=== PATIENT | female | born 1965 | race Caucasian/White ===

== ENCOUNTER 2019-12-19 15:33 | Emergency (ER) | payer MEDICAID ==
[~2019-12-19] VITALS: Ht 163 cm; Wt 95.0 kg
[2019-12-19 16:42] LABS: BILIRUBIN,URINE NEGATIVE (NEGATIVE); CLARITY,URINE CLEAR; COLOR,URINE YELLOW; GLUCOSE, URINE (UA) NEGATIVE (NEGATIVE); KETONES,URINE NEGATIVE (NEGATIVE); LEUKOCYTE ESTERASE ,URINE NEGATIVE (NEGATIVE); NITRITE,URINE NEGATIVE (NEGATIVE); PH,URINE 5.5 (5-9); PROTEIN,URINE NEGATIVE (NEGATIVE)
[2019-12-19 16:43] LABS: BASOPHILS % (AUTO) 1 % (0-10); EOSINOPHILS # (AUTO) 0.2 10^3/uL (0.0-0.3); EOSINOPHILS % (AUTO) 3 % (0-10); HEMATOCRIT 37 % (35-52); HEMOGLOBIN 12.2 G/DL (11.5-16.0); LYMPHOCYTES # (AUTO) 2.1 X 10^3 (1.0-4.0); LYMPHOCYTES % (AUTO) 31 % (12-44); MEAN CORPUSCULAR HEMOGLOBIN 30 PG (25-34); MEAN CORPUSCULAR HGB CONC 33 G/DL (32-36); MEAN CORPUSCULAR VOLUME 90 FL (80-99); MEAN PLATELET VOLUME 11.2 FL (7.4-10.4); MONOCYTES # (AUTO) 0.6 X 10^3 (0.0-1.0); MONOCYTES % (AUTO) 8 % (0-12); NEUTROPHILS % (AUTO) 58 % (42-75); PLATELET COUNT 277 10^3/uL (130-400); RED CELL DISTRIBUTION WIDTH 13.8 % (10.0-14.5); WHITE BLOOD COUNT 6.9 10^3/uL (4.3-11.0)
--- NOTE | 2019-12-19 16:47 | ED General ---
General Chief Complaint: Fever-Adult/Adol Stated Complaint: FEVER,SOB,BALANCE OFF,CHILLS,COUGH Source of Information: Patient Exam Limitations: No Limitations (SHERIF MORENO MD) History of Present Illness Date Seen by Provider: December 19, 2019 Time Seen by Provider: 16:00 Initial Comments Here with report of fevers, chills, body aches, short of breath and intermittent mild cough onset Monday, 3 days ago. States fever was persistent until now. Did have stomach upset but denies vomiting or diarrhea. States that she has been drinking a lot of water. Has been staying with family in [place] since Monday. Normally lives in [facility] with her older sister who is very fragile. Due to the current illness she did not go back there. She did personally report that she has no travel history other than from home to grocery store and lumbar store this weekend. Denies other sick contacts in the family. Timing/Duration: 3-4 Days Severity: Moderate Associated Systoms: Cough, Fever/Chills, Headaches, Shortness of Air, Weakness (SHERIF MORENO MD) Allergies and Home Medications Allergies Coded Allergies: erythromycin base (Verified Allergy, Severe, 12/19/19) Patient Home Medication List Home Medication List Reviewed: Yes (SHERIF MORENO MD) Review of Systems Review of Systems Constitutional: see HPI EENTM: see HPI, nose congestion; No throat pain Respiratory: see HPI Cardiovascular: No chest pain, No edema Gastrointestinal: abdominal pain (epigastric); No diarrhea, No nausea Genitourinary: decreased output Musculoskeletal: no symptoms reported (SHERIF MORENO MD) All Other Systems Reviewed Negative Unless Noted: Yes (SHERIF MORENO MD) Past Kvwjklv-Frejob-Hwycga Hx Past Med/Social Hx: Reviewed Nursing Past Med/Soc Hx (SHERIF MORENO MD) Patient Social History Alcohol Use: Denies Use Smoking Status: Current Everyday Smoker Recent Foreign Travel: No Contact w/Someone Who Travel: No (SHERIF MORENO MD) Past Medical History Surgeries: Yes Gallbladder, Orthopedic, Tubal Ligation Respiratory: Yes Cardiac: Yes High Cholesterol, Hypertension Neurological: No Reproductive Disorders: No Gastrointestinal: Yes Gastroesophageal Reflux, Hepatitis Musculoskeletal: Yes Endocrine: Yes Psychosocial: Yes Anxiety (SHERIF MORENO MD) Family Medical History Reviewed Nursing Family Hx (SHERIF MORENO MD) No Pertinent Family Hx (SHERIF MORENO MD) Physical Exam-Suspected Sepsis Physical Exam Vital Signs Vital Signs - First Documented 12/19/19 16:06 Temp 36.8 Pulse 74 Resp 18 B/P (MAP) 160/98 (118) Pulse Ox 99 O2 Delivery Room Air (LONDON MAZA) Vital Signs Capillary Refill : (SHERIF MORENO MD) Height, Weight, BMI Height: '" Weight: lbs. oz. kg; BMI Method: General Appearance: No Apparent Distress, WD/WN HEENT: PERRL/EOMI Neck: Non Tender, Supple Respiratory: Lungs Clear, Normal Breath Sounds Cardiovascular: Regular Rate, Rhythm, No Murmur Gastrointestinal: Non Tender, Soft Back: Normal Inspection, No CVA Tenderness, No Vertebral Tenderness Extremity: Normal Range of Motion, Non Tender Neurologic/Psychiatric: Alert, Oriented x3 Skin: normal color, warm/dry (SHERIF MORENO MD) Focused Exam Lactate Level 12/19/19 16:20: Lactic Acid Level 0.88 (LONDON MAZA) Lactic Acid Level Laboratory Tests Test 12/19/19 16:20 Lactic Acid Level 0.88 MMOL/L (0.50-2.00) (LONDON MAZA) Progress/Results/Core Measures Suspected Sepsis SIRS Temperature: Pulse: Respiratory Rate: Laboratory Tests 12/19/19 16:20: White Blood Count 6.9 Blood Pressure / Mean: 12/19/19 16:20: Lactic Acid Level 0.88 Laboratory Tests 12/19/19 16:20: Creatinine 0.77, INR Comment 0.8, Platelet Count 277, Total Bilirubin 0.4 (SHERIF MORENO MD) Results/Orders Lab Results Laboratory Tests Test 12/19/19 16:20 Range/Units White Blood Count 6.9 4.3-11.0 10^3/uL Red Blood Count 4.08 L 4.35-5.85 10^6/uL Hemoglobin 12.2 11.5-16.0 G/DL Hematocrit 37 35-52 % Mean Corpuscular Volume 90 80-99 FL Mean Corpuscular Hemoglobin 30 25-34 PG Mean Corpuscular Hemoglobin Concent 33 32-36 G/DL Red Cell Distribution Width 13.8 10.0-14.5 % Platelet Count 277 130-400 10^3/uL Mean Platelet Volume 11.2 H 7.4-10.4 FL Neutrophils (%) (Auto) 58 42-75 % Lymphocytes (%) (Auto) 31 12-44 % Monocytes (%) (Auto) 8 0-12 % Eosinophils (%) (Auto) 3 0-10 % Basophils (%) (Auto) 1 0-10 % Neutrophils # (Auto) 4.0 1.8-7.8 X 10^3 Lymphocytes # (Auto) 2.1 1.0-4.0 X 10^3 Monocytes # (Auto) 0.6 0.0-1.0 X 10^3 Eosinophils # (Auto) 0.2 0.0-0.3 10^3/uL Basophils # (Auto) 0.0 0.0-0.1 10^3/uL Erythrocyte Sedimentation Rate 23 0-30 MM/HR Prothrombin Time 11.5 L 12.2-14.7 SEC INR Comment 0.8 0.8-1.4 Activated Partial Thromboplast Time 28 24-35 SEC D-Dimer 1.00 H 0.00-0.49 UG/ML Urine Color YELLOW Urine Clarity CLEAR Urine pH 5.5 5-9 Urine Specific Grayling 1.025 H 1.016-1.022 Urine Protein NEGATIVE NEGATIVE Urine Glucose (UA) NEGATIVE NEGATIVE Urine Ketones NEGATIVE NEGATIVE Urine Nitrite NEGATIVE NEGATIVE Urine Bilirubin NEGATIVE NEGATIVE Urine Urobilinogen 1.0 < = 1.0 MG/DL Urine Leukocyte Esterase NEGATIVE NEGATIVE Urine RBC (Auto) NEGATIVE NEGATIVE Urine RBC NONE /HPF Urine WBC 0-2 /HPF Urine Squamous Epithelial Cells 0-2 /HPF Urine Crystals NONE /LPF Urine Bacteria TRACE /HPF Urine Casts NONE /LPF Urine Mucus SMALL H /LPF Urine Culture Indicated NO Sodium Level 140 135-145 MMOL/L Potassium Level 4.1 3.6-5.0 MMOL/L Chloride Level 105 98-107 MMOL/L Carbon Dioxide Level 25 21-32 MMOL/L Anion Gap 10 5-14 MMOL/L Blood Urea Nitrogen 13 7-18 MG/DL Creatinine 0.77 0.60-1.30 MG/DL Estimat Glomerular Filtration Rate > 60 BUN/Creatinine Ratio 17 Glucose Level 93 70-105 MG/DL Lactic Acid Level 0.88 0.50-2.00 MMOL/L Calcium Level 9.0 8.5-10.1 MG/DL Corrected Calcium 9.0 8.5-10.1 MG/DL Total Bilirubin 0.4 0.1-1.0 MG/DL Aspartate Amino Transf (AST/SGOT) 68 H 5-34 U/L Alanine Aminotransferase (ALT/SGPT) 78 H 0-55 U/L Alkaline Phosphatase 68 40-136 U/L Lactate Dehydrogenase 833 H 125-220 U/L C-Reactive Protein High Sensitivity 1.06 H 0.00-0.50 MG/DL Total Protein 7.2 6.4-8.2 GM/DL Albumin 4.0 3.2-4.5 GM/DL Procalcitonin 0.05 <0.10 NG/ML Urine Opiates Screen NEGATIVE NEGATIVE Urine Oxycodone Screen NEGATIVE NEGATIVE Urine Methadone Screen NEGATIVE NEGATIVE Urine Propoxyphene Screen NEGATIVE NEGATIVE Urine Barbiturates Screen NEGATIVE NEGATIVE Ur Tricyclic Antidepressants Screen NEGATIVE NEGATIVE Urine Phencyclidine Screen NEGATIVE NEGATIVE Urine Amphetamines Screen POSITIVE H NEGATIVE Urine Methamphetamines Screen POSITIVE H NEGATIVE Urine Benzodiazepines Screen POSITIVE H NEGATIVE Urine Cocaine Screen NEGATIVE NEGATIVE Urine Cannabinoids Screen NEGATIVE NEGATIVE (LONDON MAZA) Micro Results Microbiology 12/19/19 Influenza Types A,B Antigen (IVETH) - Final, Complete (LONDON MAZA) My Orders Orders - LONDON MAZA Drug Screen Stat (Urine) (12/19/19 17:47) (LONDON MAZA) Medications Given in ED Current Medications Medications Dose Ordered Sig/Jorge Route Start Time Stop Time Status Last Admin Dose Admin Iohexol 100 ml ONCE ONCE IV 12/19/19 17:45 12/19/19 17:48 DC 12/19/19 18:26 79 ML Lactated Ringer's 1,000 ml @ 0 mls/hr Q0M ONCE IV 12/19/19 16:50 12/19/19 16:52 DC 12/19/19 17:18 1,000 MLS/HR Sodium Chloride 10 ml NEEDED PRN IV 12/19/19 17:45 12/19/19 18:27 10 ML Sodium Chloride 100 ml ONCE ONCE IV 12/19/19 17:45 12/19/19 17:48 DC 12/19/19 18:26 80 ML (LONDON MAZA) Vital Signs/I&O 12/19/19 16:06 Temp 36.8 Pulse 74 Resp 18 B/P (MAP) 160/98 (118) Pulse Ox 99 O2 Delivery Room Air (LONDON MAZA) Vital Signs/I&O Capillary Refill : (SHERIF MORENO MD) Progress Note : Progress Note Seen and evaluated. IV, labs, blood cultures and lactic acid ordered. Influenza screen and COVID-19 screen ordered. LR 1 L bolus. Chest x-ray ordered. Monitor patient. 174: No acute findings and chest x-ray are UA. Influenza negative. CBC does not show any significant findings. LDH is elevated. D-dimer is elevated. Given these findings, we will get CT angiogram of the chest given reported shortness of breath, dizziness and mild cough with report of fever. Monitor patient. (SHERIF MORENO MD) Progress Note : Progress Note 1800 Assumed care of patient from Dr. Moreno. No requests at this time. Awaiting CT Chest. 1899 CT chest results discussed with Dr. Moreno. Suspicion for COVID 19, charge instructions and return precautions reviewed with the patient. She understands the importance of quarantine and isolation until results are confirmed. (LONDON MAZA) Diagnostic Imaging Diagonstic Imaging: Xray Plain Films/CT/US/NM/MRI: chest Comments [facility], [place] NAME: ISIDORO FAJARDO [facility] REC#: [id number] PT STATUS: REG ER : 1965 PHYSICIAN: SHERIF MORENO MD ADMIT DATE: 12/19/19/ER Signed Date of Exam:12/19/19 CHEST 1 VIEW, AP/PA ONLY EXAMINATION: Chest radiograph, portable AP view. DATE: 12/19/2019 5:22 PM INDICATION: 54-year-old female, cough, fever, chills. COMPARISON: None. FINDINGS: Heart size and mediastinal contours are unremarkable. There is no identified pneumothorax. There is no large pleural effusion. There is no identified focal airspace consolidation. IMPRESSION: No identified acute cardiopulmonary abnormality. Dictated by: Dictated on workstation # [id number] Dict: 12/19/19 1722 Trans: 12/19/19 1730 [id number] Interpreted by: GERARDO SAPP MD Electronically signed by: GERARDO SAPP MD 12/19/19 1736 (SHERIF MORENO MD) Comments NAME: ISIDORO FAJARDO REC#: [id number] PT STATUS: REG ER : 1965 PHYSICIAN: SHERIF MORENO MD ADMIT DATE: 12/19/19/ER Draft Date of Exam:12/19/19 CT DAY[facility]I CHEST/NOANG ABD-PELV W HISTORY: Fever, chills, cough for four days. TECHNIQUE: Axial CT of the chest was performed following intravenous administration of contrast timed for evaluation of the pulmonary arteries, with sagittal, coronal, and MIP reformats. Axial CT of the abdomen and pelvis was performed following intravenous administration of contrast as well. COMPARISON: Chest x-ray from the same day. FINDINGS: CT CHEST: The pulmonary arteries are diagnostic to the segmental level. No pulmonary embolus is seen. The heart is normal in size. There is no pericardial effusion. The aorta appears normal in caliber. There are multiple mildly prominent mediastinal and hilar lymph nodes. There is a right hilar lymph node measuring 8 x 16 mm (image 52 series 2). There is a left hilar lymph node measuring 8 x 13 mm (image 65 series 2). There is no pleural effusion or pneumothorax. No central endobronchial lesions are seen. There is groundglass opacity in the dependent lungs bilaterally. A calcified granuloma is seen in the right lower lobe. There is a triangular nodule along the right minor fissure which likely represents a lymph node (image 59 series 2). There is a 6 mm nodule in the right lower lobe (image 114 series 2). There are mild peripheral subpleural groundglass opacities in the lungs with no focal airspace consolidation seen. No acute osseous abnormality is seen. CT ABDOMEN/PELVIS: The liver demonstrates no focal lesions. Cholecystectomy clips are noted. The spleen appears normal. The pancreas is normal. The adrenal glands appear normal. The kidneys are unremarkable. Bowel loops are nondistended without obstruction seen. The appendix is normal. There is diverticulosis in the sigmoid colon without diverticulitis seen. No free fluid or free air is seen. No acute osseous abnormality is seen. IMPRESSION: 1. Groundglass opacities in dependent lungs and in the subpleural lung elsewhere. These are nonspecific, and may be due to atelectasis, scarring, or focal infectious/inflammatory process. 2. No pulmonary embolus seen. 3. Nodule in the right lower lobe, consider follow-up CT in 6 to 12 months. 4. Diverticulosis of the colon with no diverticulitis seen. Dictated on workstation # [id number] Dict: 12/19/19 1835 Trans: 12/19/19 1849 [id number] Interpreted by: BOB WARD MD Electronically signed by: (LONDON MAZA) Departure Impression Primary Impression: Cough Additional Impressions: Upper respiratory infection Qualified Codes: J06.9 - Acute upper respiratory infection, unspecified Lung nodule seen on imaging study Suspected SARS Disposition: HOME, SELF-CARE Condition: Improved Departure-Patient Inst. Decision time for Depature: 19:00 (LONDON MAZA) Referrals: NO,LOCAL PHYSICIAN (PCP/Family) Primary Care Physician Patient Instructions: Coronavirus Disease 2019 (COVID-19) (DC) Add. Discharge Instructions: stay home on isolation, until your COVID 19 results are called to you. Notify any close contacts over the last 3-4 days, to stay home until your results are known Increase rest and fluids. You need a follow up CT of chest for suspicious nodule in 6-12 months. Call your primary care provider, if symptoms worsen. Alternate Tylenol 650mg and Ibuprofen 600 mg every 4 hours Return to the ER if difficulty breathing, fever greater than 101, not relieved by Tylenol/Ibuprofen or any other concerning symptoms. All discharge instructions reviewed with patient and/or family. Voiced understanding. SHERIF MORENO MD December 19, 2019 16:47 LONDON MAZA December 19, 2019 19:06
[2019-12-19] MEDS ORDERED: LACTATED RINGERS 1,000 ML IV ONE (16:50)
[2019-12-19 16:52] LABS: BACTERIA,URINE TRACE /HPF; WBC,URINE 0-2 /HPF
[2019-12-19 16:53] LABS: SQUAMOUS EPITHELIAL CELL,UR 0-2 /HPF
[2019-12-19 16:57] LABS: CHLORIDE 105 MMOL/L (98-107); POTASSIUM 4.1 MMOL/L (3.6-5.0); SODIUM 140 MMOL/L (135-145)
[2019-12-19 17:00] LABS: GLUCOSE 93 MG/DL (70-105); TOTAL PROTEIN 7.2 GM/DL (6.4-8.2)
[2019-12-19 17:01] LABS: CARBON DIOXIDE 25 MMOL/L (21-32)
[2019-12-19 17:02] LABS: BILIRUBIN,TOTAL 0.4 MG/DL (0.1-1.0)
[2019-12-19 17:03] LABS: ALKALINE PHOSPHATASE 68 U/L (40-136)
[2019-12-19 17:04] LABS: CREATININE SERUM 0.77 MG/DL (0.60-1.30); GFR ESTIMATED > 60
[2019-12-19 17:05] LABS: BUN/CREATININE RATIO 17
[2019-12-19 17:06] LABS: ALANINE AMINOTRANSFERASE 78 U/L (0-55)
[2019-12-19 17:14] LABS: ERYTHROCYTE SEDIMENTATION RATE 23 MM/HR (0-30)
--- NOTE | 2019-12-19 17:27 | Diagnostic Imaging Report ---
EXAMINATION: Chest radiograph, portable AP view. DATE: 12/19/2019 5:22 PM INDICATION: 54-year-old female, cough, fever, chills. COMPARISON: None. FINDINGS: Heart size and mediastinal contours are unremarkable. There is no identified pneumothorax. There is no large pleural effusion. There is no identified focal airspace consolidation. IMPRESSION: No identified acute cardiopulmonary abnormality. Dictated by: Dictated on workstation # [id number]
[2019-12-19 17:38] LABS: INR 0.8 (0.8-1.4); PROTHROMBIN TIME PATIENT 11.5 SEC (12.2-14.7)
[2019-12-19] MEDS ORDERED: IOHEXOL 350 MG/ML 100 ML (OMNIPAQUE 350) VIAL IV ONE (17:45)
[2019-12-19] MEDS ORDERED: HOLD METFORMIN - RECEIVED CONTRAST 20 ML VIAL IV SCH (17:45)
[2019-12-19] MEDS ORDERED: NS 100 ML (IVPB) BAG IV ONE (17:45)
[2019-12-19] MEDS ORDERED: CATHETER FLUSH 10 ML SYR IV PRN (17:45)
[2019-12-19 18:04] LABS: AMPHETAMINE SCREEN, URINE POSITIVE (NEGATIVE); BARBITURATE SCREEN URINE NEGATIVE (NEGATIVE); BENZODIAZEPINES SCREEN URINE POSITIVE (NEGATIVE); CANNABINOID SCREEN, URINE NEGATIVE (NEGATIVE); COCAINE SCREEN URINE NEGATIVE (NEGATIVE); METHADONE STAT NEGATIVE (NEGATIVE); METHAMPHETAMINE SCREEN URINE S POSITIVE (NEGATIVE); OPIATE SCREEN URINE NEGATIVE (NEGATIVE); OXYCODONE STAT NEGATIVE (NEGATIVE); PROPOXYPHENE STAT NEGATIVE (NEGATIVE); TRICYCLIC ANTIDEPRESSANTS SCRE NEGATIVE (NEGATIVE)
--- OUTSIDE RECORDS SUMMARY | 2019-12-19 18:19 | XMS REPORT | Continuity of Care Document ---
Demographics Preferred Language Unknown Marital Status Unknown Mosque Affiliation Unknown Race Unknown Ethnic Group Unknown Author Organization Unknown Address Unknown Phone Unavailable Allergies There is no data. Medications There is no data. Problems There is no data. Procedures There is no data. Results Test Result Range Complete blood count (CBC) with automate d white blood cell (WBC) differential - 12/19/19 16:20 Blood leukocytes automated count (number/volume) 6.9 10*3/uL 4.3-11.0 Blood erythrocytes automated count (number/volume) 4.08 10*6/uL 4.35-5.85 Venous blood hemoglobin measurement (mass/volume) 12.2 g/dL 11.5-16.0 Blood hematocrit (volume fraction) 37 % 35-52 Automated erythrocyte mean corpuscular volume 90 [ foz_us] 80-99 Automated erythrocyte mean corpuscular h emoglobin (mass per erythrocyte) 30 pg 25-34 Automated erythrocyte mean corpuscular h emoglobin concentration measurement (mass/volume) 33 g/dL 32-36 Automated erythrocyte distribution width ratio 13. 8 % 10.0- 14.5 Automated blood platelet count (count/volume) 277 10*3/uL 130-400 Automated blood platelet mean volume measurement 11.2 [foz_us] 7.4-10.4 Automated blood neutrophils/100 leukocytes 58 % 42-75 Automated blood lymphocytes/100 leukocytes 31 % 12-44 Blood monocytes/100 leukocytes 8 % 0-12 Automated blood eosinophils/100 leukocytes 3 % 0-10 Automated blood basophils/100 leukocytes 1 % 0-10 Blood neutrophils automated count (number/volume) 4.0 10*3 1.8-7.8 Blood lymphocytes automated count (number/volume) 2.1 10*3 1.0-4.0 Blood monocytes automated count (number/volume) 0. 6 10*3 0.0-1.0 Automated eosinophil count 0.2 10*3/uL 0 .0-0.3 Automated blood basophil count (count/volume) 0.0 10*3/uL 0.0-0.1 Complete urinalysis with reflex to cultu re - 05/07/20 16:20 Urine color determination YELLOW NRG Urine clarity determination CLEAR NR G Urine pH measurement by test strip 5.5 5-9 Specific gravity of urine by test strip 1.025 1.016-1.022 Urine protein assay by test strip, semi-quantitative NEGATIVE NEGATIVE Urine glucose detection by automated test strip NE GATIVE NEGATIVE Erythrocytes detection in urine sediment by light micr oscopy NEGATIVE NEGATIVE Urine ketones detection by automated test strip NE GATIVE NEGATIVE Urine nitrite detection by test strip NEGATIVE NEGATIVE Urine total bilirubin detection by test strip NEGA TIVE NEGATIVE Urine urobilinogen measurement by automated test strip (mass/volume) 1.0 mg/dL < = 1.0 Urine leukocyte esterase detection by dipstick NEG ATIVE NEGATIVE Automated urine sediment erythrocyte cou nt by microscopy (number/high power field) NONE NRG Automated urine sediment leukocyte count by microscopy (number/high power field) [HPF] NRG Bacteria detection in urine sediment by light microsco py TRACE NRG Squamous epithelial cells detection in u rine sediment by light microscopy 0-2 NRG Crystals detection in urine sediment by light microsco py NONE NRG Casts detection in urine sediment by light microscopy NONE NRG Mucus detection in urine sediment by light microscopy SMALL NRG Complete urinalysis with reflex to culture NO NRG Comprehensive metabolic panel - 12/19/19 16:20 Serum or plasma sodium measurement (moles/volume) 140 mmol/L 135-145 Serum or plasma potassium measurement (moles/volume) 4.1 mmol/L 3.6-5.0 Serum or plasma chloride measurement (moles/volume) 105 mmol/L 98-107 Carbon dioxide 25 mmol/L 21-32 Serum or plasma anion gap determination (moles/volume) 10 mmol/L 5-14 Serum or plasma urea nitrogen measurement (mass/volume ) 13 mg/dL 7-18 Serum or plasma creatinine measurement (mass/volume) 0.77 mg/dL 0.60-1.30 Serum or plasma urea nitrogen/creatinine mass ratio 17 NRG Serum or plasma creatinine measurement w ith calculation of estimated glomerular filtration rate > NRG Serum or plasma glucose measurement (mass/volume) 93 mg/dL 70-105 Serum or plasma calcium measurement (mass/volume) 9.0 mg/dL 8.5-10.1 Serum or plasma total bilirubin measurement (mass/volu me) 0.4 mg/dL 0.1-1.0 Serum or plasma alkaline phosphatase day surement (enzymatic activity/volume) 68 U/L 40-136 Serum or plasma aspartate aminotransfera se measurement (enzymatic activity/volume) 68 U/L 5-34 Serum or plasma alanine aminotransferase measurement (enzymatic activity/volume) 78 U/L 0-55 Serum or plasma protein measurement (mass/volume) 7.2 g/dL 6.4-8.2 Serum or plasma albumin measurement (mass/volume) 4.0 g/dL 3.2-4.5 CALCIUM CORRECTED 9.0 mg/dL 8.5-10.1 Influenza virus A and B antigen detectio n - 12/19/19 16:20 FLU RESULT NEGATIVE FOR INFLUENZA A AND B ANTIGENS BY IA NRG Blood lactic acid measurement (moles/vol ume) - 12/19/19 16:20 Blood lactic acid measurement (moles/volume) 0.88 mmol/L 0.50-2.00 Serum ragweed IgE antibody assay - 12/18 16:20 Serum ragweed IgE antibody assay 833 U/L 125-220 PROCALCITONIN (PCT) - 12/19/19 16:20 PROCALCITONIN (PCT) 0.05 ng/mL <0.10 Erythrocyte sedimentation rate by andrew gren method - 12/19/19 16:20 Erythrocyte sedimentation rate by westergren method 23 mm 0- 30 Serum or plasma C reactive protein measu rement (mass/volume) - 12/19/19 16:20 Serum or plasma C reactive protein measurement (mass/v olume) 1.06 mg/dL 0.00-0.50 PT panel in platelet poor plasma by coag ulation assay - 12/19/19 16:20 Prothrombin time (PT) in platelet poor plasma by coagu lation assay 11.5 s 12.2-14.7 INR in platelet poor plasma or blood by coagulation as say 0.8 0.8-1.4 Activated partial thromboplastin time (a PTT) in platelet poor plasma bycoagulation assay - 12/19/19 16:20 Activated partial thromboplastin time (a PTT) in platelet poor plasma bycoagulation assay 28 s 24-35 Fibrin D-dimer FEU measurement in platel et poor plasma (mass/volume) - 12/19/19 16:20 Fibrin D-dimer FEU measurement in platelet poor plasma (mass/volume) 1.00 ug/mL 0.00-0.49 Urine drug screening test - 12/19/19 16: 20 Urine phencyclidine detection by screening method NEGATIVE NEGATIVE Urine benzodiazepines detection by screening method POSITIVE NEGATIVE Urine cocaine detection NEGATIVE NEGATI VE Urine amphetamines detection by screening method P OSITIVE NEGATIVE Urine methamphetamine detection by screening method POSITIVE NEGATIVE Urine cannabinoids detection by screening method N EGATIVE NEGATIVE Urine opiates detection by screening method NEGATI VE NEGATIVE Urine barbiturates detection NEGATIVE N EGATIVE Screening urine tricyclic antidepressants detection NEGATIVE NEGATIVE Urine methadone detection by screening method NEGA TIVE NEGATIVE Urine oxycodone detection NEGATIVE NEGA TIVE Urine propoxyphene detection NEGATIVE N EGATIVE Encounters ACCT No. Visit Date/Time Discharge Status Pt. Type Provider Facility Loc./Unit Complaint [id number] 12/19/2019 16:48:00 Document Registration
--- NOTE | 2019-12-19 18:50 | Diagnostic Imaging Report ---
HISTORY: Fever, chills, cough for four days. TECHNIQUE: Axial CT of the chest was performed following intravenous administration of contrast timed for evaluation of the pulmonary arteries, with sagittal, coronal, and MIP reformats. Axial CT of the abdomen and pelvis was performed following intravenous administration of contrast as well. COMPARISON: Chest x-ray from the same day. FINDINGS: CT CHEST: The pulmonary arteries are diagnostic to the segmental level. No pulmonary embolus is seen. The heart is normal in size. There is no pericardial effusion. The aorta appears normal in caliber. There are multiple mildly prominent mediastinal and hilar lymph nodes. There is a right hilar lymph node measuring 8 x 16 mm (image 52 series 2). There is a left hilar lymph node measuring 8 x 13 mm (image 65 series 2). There is no pleural effusion or pneumothorax. No central endobronchial lesions are seen. There is groundglass opacity in the dependent lungs bilaterally. A calcified granuloma is seen in the right lower lobe. There is a triangular nodule along the right minor fissure which likely represents a lymph node (image 59 series 2). There is a 6 mm nodule in the right lower lobe (image 114 series 2). There are mild peripheral subpleural groundglass opacities in the lungs with no focal airspace consolidation seen. No acute osseous abnormality is seen. CT ABDOMEN/PELVIS: The liver demonstrates no focal lesions. Cholecystectomy clips are noted. The spleen appears normal. The pancreas is normal. The adrenal glands appear normal. The kidneys are unremarkable. Bowel loops are nondistended without obstruction seen. The appendix is normal. There is diverticulosis in the sigmoid colon without diverticulitis seen. No free fluid or free air is seen. No acute osseous abnormality is seen. IMPRESSION: 1. Groundglass opacities in dependent lungs and in the subpleural lung elsewhere. These are nonspecific, and may be due to atelectasis, scarring, or focal infectious/inflammatory process. 2. No pulmonary embolus seen. 3. Nodule in the right lower lobe, consider follow-up CT in 6 to 12 months. 4. Diverticulosis of the colon with no diverticulitis seen. Dictated by: Dictated on workstation # [id number]
[2019-12-19 19:25] VITALS: BP 124/99
== END 2019-12-19 19:25 | disposition home or self-care (01) ==
LOC: ER 15:39
DX: J06.9 Acute upper respiratory infection, unspecified (principal); R91.1 Solitary pulmonary nodule; F17.200 Nicotine dependence, unspecified, uncomplicated; Z88.1 Allergy status to other antibiotic agents
CPT/HCPCS: 36415; 71045; 71275; 74177; 80053; 80306; 81000; 83605; 83615; 84145; 85025; 85379; 85610; 85652; 85730; 86141; 87040; 87088; 87635; 87804; 96360

== ENCOUNTER 2020-02-24 17:38 | Emergency (ER) | payer MEDICAID ==
[~2020-02-24] VITALS: Ht 162 cm; Wt 91.0 kg
[2020-02-24 17:40] VITALS: BP 175/105
[2020-02-24] MEDS ORDERED: FLUC100T6 PO (17:50)
[2020-02-24] MEDS ORDERED: NAPR-1071 PO (17:51)
--- NOTE | 2020-02-24 17:51 | ED Upper Extremity ---
General Stated Complaint: R WRIST / ARM PAIN Source: patient Exam Limitations: no limitations History of Present Illness Date Seen by Provider: Feb 24, 2020 Time Seen by Provider: 17:45 Initial Comments R with right wrist pain after she fell 3 weeks ago, states she saw her primary care provider who ordered an x-ray at the time but was told it was normal. The right wrist pain persists. Onset: just prior to arrival Severity: moderate Pain/Injury Location: right wrist Method of Injury: unknown Modifying Factors: Worse With Movement Allergies and Home Medications Allergies Coded Allergies: erythromycin base (Verified Allergy, Severe, 12/19/19) Home Medications Fluconazole 100 Mg Tablet, 100 MG PO WEEK Prescribed by: MALIK MCCOY on 02/24/201749 Naproxen 500 Mg Tablet, 500 MG PO BID Prescribed by: MALIK MCCOY on 02/24/201750 Patient Home Medication List Home Medication List Reviewed: Yes Review of Systems Constitutional: see HPI EENTM: see HPI Respiratory: no symptoms reported Cardiovascular: no symptoms reported Genitourinary: no symptoms reported Musculoskeletal: see HPI Skin: no symptoms reported Psychiatric/Neurological: No Symptoms Reported Past Iotdmgg-Kjlnyj-Fexjwq Hx Patient Social History Type Used: Cigarettes Recent Foreign Travel: No Contact w/Someone Who Travel: No Recent Hopitalizations: No Seasonal Allergies Seasonal Allergies: No Past Medical History Surgeries: Yes Gallbladder, Orthopedic, Tubal Ligation Respiratory: Yes Cardiac: Yes High Cholesterol, Hypertension Neurological: No Reproductive Disorders: No 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 oz. kg; 35.00 BMI Method: General Appearance: WD/WN, no apparent distress, other (tox at a high rate of speed, unable to sit still, almost constant writhing motion. Denies methamphetamine use but appears to be under the influence of stimulants.) HEENT: PERRL/EOMI, normal ENT inspection Respiratory: normal breath sounds, no respiratory distress, no accessory muscle use Shoulder: normal inspection, non-tender Elbow/Forearm: normal inspection, non-tender Wrist: Yes normal inspection, Yes soft tissue tenderness; No swelling Hand: normal inspection, non-tender Neurologic/Psychiatric: alert, normal mood/affect, oriented x 3 Skin: normal color, other (patches of well demarcated erythema with most erythema at the leading edge and central clearing consistent with a fungal infection about the torso.) Progress/Results/Core Measures Results/Orders My Orders Orders - MALIK MCCOY APRN Wrist, Right, 3 Views Or More (02/24/20 17:40) Vital Signs/I&O 02/24/20 17:40 Temp 36.7 Pulse 92 Resp 18 B/P (MAP) 175/105 (128) Pulse Ox 97 Departure Impression Primary Impression: Tinea corporis Additional Impression: Right wrist pain Disposition: 01 HOME, SELF-CARE Condition: Stable Departure-Patient Inst. Decision time for Depature: 17:48 Referrals: NO,LOCAL PHYSICIAN (PCP) Primary Care Physician Patient Instructions: Fungal Skin Rash, Wrist Sprain (DC) Add. Discharge Instructions: Take the oral antifungal once a week for 4 weeks. You can use wled-jci-jggqzab athlete's foot cream on these lesions as well. Follow-up with your regular doctor for further evaluation of the wrist pain and possible referral to an orthopedic surgeon. Scripts Naproxen (Naprosyn) 500 Mg Tablet 500 MG PO BID, #30 TAB 0 Refills Prov: MALIK MCCOY APRN 02/24/20 Fluconazole (Fluconazole) 100 Mg Tablet 100 MG PO WEEK, #4 TAB Prov: MALIK MCCOY APRN 02/24/20 MALIK MCCOY APRN Feb 24, 2020 17:51
--- NOTE | 2020-02-24 18:01 | Diagnostic Imaging Report ---
INDICATION: Right wrist injury 3 views of the right wrist show no fracture, dislocation or other acute abnormalities. IMPRESSION: Negative right wrist Dictated by: Dictated on workstation # [id number]
--- OUTSIDE RECORDS SUMMARY | 2020-02-24 20:13 | XMS REPORT | Continuity of Care Document ---
Author Organization Unknown Address Unknown Phone Unavailable Allergies Active Description Code Type Severity Reaction Onset Reported/Identified Relationship to Patient Clinical Status Yes erythromycin base [id number] Drug Allergy Severe N/A 12/19/2019 Medications There is no data. Problems Date Dx Coded Attending Type Code Diagnosis Diagnosed By 12/23/2019 SHERIF MORENO MD, Ot F17.200 NICOTINE DEPENDENCE, UNSPECIFIED, UNCOMP 12/23/2019 SHERIF MORENO MD, Ot J06.9 ACUTE UPPER RESPIRATORY INFECTION, UNSPE 12/23/2019 SHERIF MORENO MD Ot R05 COUGH 12/23/2019 SHERIF MORENO MD Ot R91.1 SOLITARY PULMONARY NODULE 12/23/2019 SHERIF MORENO MD, Ot Z88.1 ALLERGY STATUS TO OTHER ANTIBIOTIC AGENT 01/15/2020 SHERIF MORENO MD, Ot F17.200 NICOTINE DEPENDENCE, UNSPECIFIED, UNCOMP 01/15/2020 SHERIF MORENO MD, Ot J06.9 ACUTE UPPER RESPIRATORY INFECTION, UNSPE 01/15/2020 SHERIF MOREON MD Ot R05 COUGH 01/15/2020 SHERIF MORENO MD Ot R91.1 SOLITARY PULMONARY NODULE 01/15/2020 SHERIF MORENO MD Ot Z20.828 CONTACT W AND EXPOSURE TO OTH VIRAL COMM 01/15/2020 SHERIF MORENO MD Ot Z88.1 ALLERGY STATUS TO OTHER ANTIBIOTIC AGENT Procedures There is no data. Results Test [...] urinalysis with reflex to cultu re - 12/19/19 16:20 Urine color determination YELLOW NRG Urine [...] TIVE Urine propoxyphene detection NEGATIVE N EGATIVE Coronavirus SARS-CoV-2 SO 2018 - 0 16:20 Coronavirus Ab [Units/volume] in Serum Negative Negative Bacterial urine culture - 12/19/19 16:20 Bacterial urine culture 3 OR MORE NRG COLONY COUNT >100,000/ML NRG SUSCEPTIBILITY SUGGESTING PROBABLE COLLECTION NRG MRSA SCREEN CONTAMINATION WITH SKIN MARIO NRG RAPID ID NO SUSCEPTIBILITY PERFORMED N RG Bacterial blood culture - 12/19/19 16:20 Bacterial blood culture NG NRG Bacterial blood culture - 12/19/19 17:25 Bacterial blood culture NG NRG Encounters ACCT No. Visit Date/Time Discharge Status Pt. Type Provider Facility Loc./Unit Complaint [id number] 02/24/2020 17:40:00 18:27:00 DIS Emergency MALIK MCCOY APRN [facility] ER R WRIST / ARM PAIN [id number] 12/19/2019 15:39:00 19:25:00 DIS Outpatient JOSH SERRANO, SHERIF Delgado [facility] ER FEVER,SOB,HARRIET CE OFF,CHILLS,COUGH
== END 2020-02-24 18:27 | disposition home or self-care (01) ==
LOC: EDUNIT# 17:38 → ER 17:40
DX: B35.4 Tinea corporis (principal); M25.531 Pain in right wrist; Z88.1 Allergy status to other antibiotic agents
CPT/HCPCS: 73110

== ENCOUNTER 2023-02-14 16:32 | Emergency (ER) | payer MEDICAID ==
[~2023-02-14] VITALS: Ht 172 cm; Wt 80.0 kg
[~2023-02-14 16:32] MED LIST: FLUC100T10 PO; NAPR-1071 PO
[2023-02-14 16:35] VITALS: BP 127/85
[2023-02-14] MEDS ORDERED: LORazepam INJ 2 MG/ML (ATIVAN) VIAL IVP ONE ×2 (16:45→17:30)
[2023-02-14] MEDS ORDERED: NS IV 1000 ML 1,000 ML IV SCH (16:45)
[2023-02-14 16:50] LABS: BASOPHILS # (AUTO) 0.1 10^3/uL (0.0-0.1); BASOPHILS % (AUTO) 1 % (0-10); EOSINOPHILS # (AUTO) 0.3 10^3/uL (0.0-0.3); EOSINOPHILS % (AUTO) 3 % (0-10); HEMATOCRIT 34 % (35-52); HEMOGLOBIN 11.6 g/dL (11.5-16.0); LYMPHOCYTES # (AUTO) 1.7 10^3/uL (1.0-4.0); LYMPHOCYTES % (AUTO) 18 % (12-44); MEAN CORPUSCULAR HEMOGLOBIN 31 pg (25-34); MEAN CORPUSCULAR HGB CONC 34 g/dL (32-36); MEAN CORPUSCULAR VOLUME 91 fL (80-99); MEAN PLATELET VOLUME 10.6 fL (9.0-12.2); MONOCYTES # (AUTO) 0.8 10^3/uL (0.0-1.0); MONOCYTES % (AUTO) 8 % (0-12); NEUTROPHILS # (AUTO) 6.7 10^3/uL (1.8-7.8); NEUTROPHILS % (AUTO) 70 % (42-75); PLATELET COUNT 244 10^3/uL (130-400); WHITE BLOOD COUNT 9.6 10^3/uL (4.3-11.0)
--- NOTE | 2023-02-14 16:50 | ED Psychosocial ---
General Chief Complaint: Altered Mental Status Stated Complaint: AMS Nursing Triage Note: PT ARRIVED PER EMS WAS CALLED TO FRIENDS HOME IN [place]. PT HAS INGESTED SOME THC GUMMIES TODAY. PT IS CONSTANTLY MOVING BODY AND EXTREMETIES. PT IS UNABLE TO LAY STILL. PT IS INCOHERENT AT TIMES. PT IS ALERT TO SELF. Source: patient, EMS Exam Limitations: clinical condition History of Present Illness Date Seen by Provider: Feb 14, 2023 Time Seen by Provider: 16:34 Initial Comments 57-year-old female presents to the ER via EMS. Patient was at a friend's house, the friends called EMS because patient was on the floor unresponsive. When EMS arrived she was unresponsive, laying on her side, vomit was noted on her shoulder. She was not lying flat on her back, likely did not aspirate. Patient quickly became responsive for EMS. Patient is alert at this time, admits to taking 2 THC Gummies. The Gummies contained 100 mg of THC and 5 mg of CBG each. They also contain delta 8. She denies using any other drugs including meth. Denies alcohol use. She is alert at this time, she knows she is in the hospital, she was would not answer what month it is or the current holiday. She just states "what does it matter?" when answering the question about the month and holiday. She is constantly moving, would not hold still, she does mostly follow directions. She reports bilateral knee and leg pain, unable to state if this is chronic. Does not endorse any other complaints. Allergies and Home Medications Allergies Coded Allergies: erythromycin base (Verified Allergy, Severe, 12/19/19) Patient Home Medication List Home Medication List Reviewed: Yes Fluconazole (Fluconazole) 100 Mg Tablet, 100 MG PO WEEK Prescribed by: MALIK MCCOY on 02/24/201749 Naproxen (Naprosyn) 500 Mg Tablet, 500 MG PO BID Prescribed by: MALIK MCCOY on 02/24/201750 Review of Systems Constitutional: see HPI Past Azqcsqk-Qvgjln-Qdfhqh Hx Patient Social History Tobacco Use?: Yes Tobacco type used: Cigarettes Smoking Status: Current Everyday Smoker Substance use?: Yes Substance type: Methamphetamine, Marijuana Alcohol Use?: Yes Alcohol Frequency: Couple times a week Pt feels they are or have been: No Seasonal Allergies Seasonal Allergies: No Past Medical History Surgery/Hospitalization HX: PT REFUSES TO TELL MED HX AT THIS X. 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 oz. kg; 27.00 BMI Method: General Appearance: WD/WN, no apparent distress Neck: supple, normal inspection Respiratory: lungs clear, normal breath sounds, no respiratory distress, no accessory muscle use Cardiovascular: tachycardia Extremities: normal range of motion, normal inspection Neurologic/Psychiatric: alert, other (Disoriented to time) Appearance/Memory: disheveled Thoughts/Hallucinations: flight of ideas, incoherent Skin: normal color, warm/dry Will not hold still, constantly moving Progress/Results/Core Measures Results/Orders Lab Results Laboratory Tests Test 02/14/23 16:45 Range/Units White Blood Count 9.6 4.3-11.0 10^3/uL Red Blood Count 3.75 L 3.80-5.11 10^6/uL Hemoglobin 11.6 11.5-16.0 g/dL Hematocrit 34 L 35-52 % Mean Corpuscular Volume 91 80-99 fL Mean Corpuscular Hemoglobin 31 25-34 pg Mean Corpuscular Hemoglobin Concent 34 32-36 g/dL Red Cell Distribution Width 13.0 10.0-14.5 % Platelet Count 244 130-400 10^3/uL Mean Platelet Volume 10.6 9.0-12.2 fL Immature Granulocyte % (Auto) 0 % Neutrophils (%) (Auto) 70 42-75 % Lymphocytes (%) (Auto) 18 12-44 % Monocytes (%) (Auto) 8 0-12 % Eosinophils (%) (Auto) 3 0-10 % Basophils (%) (Auto) 1 0-10 % Neutrophils # (Auto) 6.7 1.8-7.8 10^3/uL Lymphocytes # (Auto) 1.7 1.0-4.0 10^3/uL Monocytes # (Auto) 0.8 0.0-1.0 10^3/uL Eosinophils # (Auto) 0.3 0.0-0.3 10^3/uL Basophils # (Auto) 0.1 0.0-0.1 10^3/uL Immature Granulocyte # (Auto) 0.0 0.0-0.1 10^3/uL Sodium Level 140 135-145 MMOL/L Potassium Level 3.6 3.6-5.0 MMOL/L Chloride Level 104 98-107 MMOL/L Carbon Dioxide Level 23 21-32 MMOL/L Anion Gap 13 5-14 MMOL/L Blood Urea Nitrogen 29 H 7-18 MG/DL Creatinine 1.14 0.60-1.30 MG/DL Estimat Glomerular Filtration Rate 55 BUN/Creatinine Ratio 25 Glucose Level 102 70-105 MG/DL Calcium Level 9.8 8.5-10.1 MG/DL Corrected Calcium 9.7 8.5-10.1 MG/DL Total Bilirubin 0.8 0.1-1.0 MG/DL Aspartate Amino Transf (AST/SGOT) 58 H 5-34 U/L Alanine Aminotransferase (ALT/SGPT) 40 0-55 U/L Alkaline Phosphatase 71 40-136 U/L Total Protein 7.1 6.4-8.2 GM/DL Albumin 4.1 3.2-4.5 GM/DL Salicylates Level < 5.0 L 5.0-20.0 MG/DL Acetaminophen Level < 10 L 10-30 UG/ML Serum Alcohol < 10 <10 MG/DL My Orders Orders - MELY AKBAR APRN Ua Culture If Indicated (02/14/23 16:43) Cbc With Automated Diff (02/14/23 16:43) Comprehensive Metabolic Panel (02/14/23 16:43) Alcohol (02/14/23 16:43) Drug Screen Stat (Urine) (02/14/23 16:43) Acetaminophen (02/14/23 16:43) Salicylate (02/14/23 16:43) Ed Iv/Invasive Line Start (02/14/23 16:43) Ns Iv 1000 Ml (Sodium Chloride 0.9%) (02/14/23 16:45) Lorazepam Injection (Ativan Injection) (02/14/23 16:45) Lorazepam Injection (Ativan Injection) (02/14/23 17:30) Medications Given in ED Current Medications Medications Dose Ordered Sig/Jorge Route Start Time Stop Time Status Last Admin Dose Admin Lorazepam 1 mg ONCE ONCE IVP 02/14/23 16:45 02/14/23 16:46 DC 02/14/23 16:48 1 MG Lorazepam 1 mg ONCE ONCE IVP 02/14/23 17:30 02/14/23 17:31 DC 02/14/23 17:31 1 MG Vital Signs/I&O 02/14/23 16:35 Pulse 100 Resp 18 B/P (MAP) 127/85 (99) Pulse Ox 97 Blood Pressure Mean: 99 Progress Progress Note : Progress Note Patient seen and evaluated, lying in bed, constantly moving, can't sit still. Based on exam and symptoms, likely intoxication from cannabinoids, as well as methamphetamines. Patient has been positive for methamphetamines in the past. Work-up initiated including CBC, CMP, alcohol level, salicylate level, Tylenol level, urine drug screen, urinalysis. IV fluids and IV Ativan ordered. 172 patient still constantly moving around, she is sitting up, and then will lay down, will put legs over the side of the railing, tries to turn sideways in the bed. Second dose of Ativan ordered. 183 patient resting calmly in bed. Labs reviewed. CBC shows slightly decreased RBC 3.75, slightly decreased hematocrit 34. CMP shows elevated BUN 29, creatinine 1.14, GFR 55, AST elevated 58. Previous labs from 12/2019 showed normal GFR, creatinine 0.77, BUN 13 also showed elevated AST at 68, and elevated ALT 78. Liver function tests improved from previous. Tylenol, salicylates, and alcohol level negative. Patient has not provided urine sample. Will continue to monitor. 2029 patient is now awake, she is alert and oriented x3. She was unable to provide urine sample, will defer. Discharge instructions and return precautions provided. Patient's daughter is on her way to pick patient up. Patient's son is currently at bedside. Departure Impression Primary Impression: Intoxication with cannabis Disposition: HOME, SELF-CARE Condition: Stable Departure-Patient Inst. Decision time for Depature: 20:31 Referrals: NO,LOCAL PHYSICIAN (PCP/Family) Primary Care Physician Patient Instructions: Marijuana Use and Addiction (DC) Add. Discharge Instructions: Stop using marijuana Gummies. Do not use any other drugs or alcohol. You may continue to be sleepy tonight, do not drive or operate heavy machinery. Return for any new, concerning, or worsening symptoms. All discharge instructions reviewed with patient and/or family. Voiced understanding. MELY AKBAR SAIL FINISHER MACHINE Feb 14, 2023 16:50
[2023-02-14 17:10] LABS: ALBUMIN 4.1 GM/DL (3.2-4.5); CHLORIDE 104 MMOL/L (98-107); POTASSIUM 3.6 MMOL/L (3.6-5.0); SODIUM 140 MMOL/L (135-145)
[2023-02-14 17:12] LABS: CALCIUM 9.8 MG/DL (8.5-10.1)
[2023-02-14 17:13] LABS: GLUCOSE 102 MG/DL (70-105); TOTAL PROTEIN 7.1 GM/DL (6.4-8.2)
[2023-02-14 17:14] LABS: CARBON DIOXIDE 23 MMOL/L (21-32)
[2023-02-14 17:15] LABS: BILIRUBIN,TOTAL 0.8 MG/DL (0.1-1.0)
[2023-02-14 17:17] LABS: ALKALINE PHOSPHATASE 71 U/L (40-136); CREATININE SERUM 1.14 MG/DL (0.60-1.30); GFR ESTIMATED 55
[2023-02-14 17:18] LABS: BUN/CREATININE RATIO 25
[2023-02-14 17:19] LABS: SALICYLATE < 5.0 MG/DL (5.0-20.0)
[2023-02-14 17:20] LABS: ALANINE AMINOTRANSFERASE 40 U/L (0-55)
[2023-02-14 18:02] LABS: ACETAMINOPHEN < 10 UG/ML (10-30)
== END 2023-02-14 20:42 | disposition home or self-care (01) ==
LOC: EDUNIT# 16:32 → ER 16:33
DX: F12.929 Cannabis use, unspecified with intoxication, unspecified (principal); R74.01 Elevation of levels of liver transaminase levels; R79.89 Other specified abnormal findings of blood chemistry; F17.210 Nicotine dependence, cigarettes, uncomplicated
CPT/HCPCS: 36415; 80053; 80320; 80329; 85025